=== PATIENT | male | born 1950 | race Caucasian/White ===

== ENCOUNTER 2019-10-13 11:12 | Outpatient (CLI) | payer MEDICARE, BC ==
--- NOTE | 2019-10-13 13:26 | CT ---
CTA ABDOMEN AND PELVIS WITH BILATERAL LOWER EXTREMITY RUNOFF: INDICATIONS: Lower extremity peripheral vascular disease TECHNIQUE: Multiple CTA images were obtained of the abdomen and pelvis with bilateral lower extremity runoff uti lizing IV contrast and 3D reformatted imaging. Axial, coronal and sagittal reformatted images were constructed from the raw data. COMPARISON: CTA of the chest, abdomen and pelvis dated October 22, 2012 FINDINGS: ABDOMEN: Lung bases: There is aneurysmal dilatation of the ascending thoracic aorta measuring up to 3.9 cm. Th ere is a short segment dissection flap involving the descending thoracic aorta originating at the distal margin of the aortic arch and extending to the level of the left atrium. There is postprocedur al change consistent with an ascending aortic replacement and aortic valvular replacement. There are prominent coronary artery and thoracic aortic calcifications. There is a small hiatal hernia. The re is a sub-4 mm, subpleural pulmonary nodule within the right middle lobe. Liver: No focal lesion. Gallbladder: There are layered gallstones within the gallbladder Pancreas: Normal. Adrenal glands: Normal. Spleen: Normal. Kidneys and ureters: There is a 7.5 cm cyst seen along the lateral margin of the superior pole left k idney. Additional subcentimeter cysts are seen within the lower pole. There are multiple small cysts involving the right kidney the largest is seen within the right mid kidney measuring 1.9 cm. Lymph nodes:No lymphadenopathy. Free fluid in abdomen:No free fluid is evident. PELVIS: Small and large bowel: There is scattered colonic diverticulosis. There is no active diverticulitis. There is a right sided inguinal hernia containing unobstructed loops of small bowel. Appendix:Normal Bladder: Normal. Rectal and perirectal soft tissues:Normal. Reproductive structures: Normal. Free fluid in pelvis: No free fluid is evident. Lymphadenopathy pelvis: No lymphadenopathy is evident. Osseous structures: No acute osseous abnormality. No destructive osteolytic or osteoblastic lesion i s identified. There is scattered degenerative and osteoarthritic changes. Soft tissues:Normal. VASCULATURE: Aorta: There is postprocedural change of an ascending aortic replacement. The excluded aneurysm of th e ascending aorta measures 3.9 cm. The aortic arch measures 2.8 cm. The descending thoracic aorta at the level right main pulmonary artery measures 3.9 cm. There is a short segment dissection flap th at is partially thrombosed involving the descending thoracic aorta proximally as described above. The thoracic aorta at the level of the hiatus measures 2.9 cm. The suprarenal abdominal aorta measure s 2.8 cm. There is an aortobiiliac endograft stent in place. The excluded infrarenal abdominal aorta measures 2 cm. The excluded right common iliac artery aneurysm measures 2.7 cm. The right inter nal iliac artery is completely occluded with endovascular coils. Both external iliac arteries are patent. Celiac:Normal in caliber without evidence of stenosis or occlusion. SMA:Normal in caliber without evidence of stenosis or occlusion. Renal arteries:There is a mild aneurysmal dilatation of the distal left renal artery near the left re nal sinus measuring 1.3 cm on image 82 of the coronal series right renal artery is patent. CHARLENE:Completely occluded but reconstitutes through collaterals. Right common iliac artery: Normal in caliber without evidence of stenosis or occlusion. Right external iliac artery: Normal in caliber without evidence of stenosis or occlusion. Right internal iliac artery: Occluded with endovascular coils Left common iliac artery: Normal in caliber without evidence of stenosis or occlusion. Left external iliac artery: Normal in caliber without evidence of stenosis or occlusion.. Left internal iliac artery: Normal in caliber without evidence of stenosis or occlusion. Right common femoral artery: Normal in caliber without evidence of stenosis or occlusion. Right deep femoral artery: There is moderate to severe narrowing involving the proximal right profun da artery Right superficial femoral artery: There is occlusion of the right distal superficial femoral artery at the level of the hiatus. There are collateral arteries seen along the medial aspect of the patella which reconstitutes flow in the level of the distal tibial peroneal trunk and anterior tibial artery. Right popliteal artery: Completely occluded Right posterior tibial artery: Opacification the right posterior tibial artery diminishes at the lev el of the right ankle. Right anterior tibial artery: Normal in caliber without evidence of stenosis or occlusion. Right peroneal artery: Normal in caliber without evidence of stenosis or occlusion. Left common femoral artery: Normal in caliber without evidence of stenosis or occlusion. Left deep femoral artery: Normal in caliber without evidence of stenosis or occlusion. Left superficial femoral artery: Normal in caliber without evidence of stenosis or occlusion. 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 There is an popliteal popliteal bypass graft with opacification of the tibial peroneal trunk and anterior tibial artery Left posterior tibial artery: There is multifocal high-grade stenosis involving the mid to distal le ft posterior tibial artery Left anterior tibial artery: Patent to the level of the ankle Left peroneal artery: There are multifocal areas of high-grade stenosis involving the left peroneal artery. The left peroneal artery is seen to the level of the distal one third of the left foreleg Additional findings: None. IMPRESSION: 1. Mild aneurysmal dilatation of the descending thoracic aorta with a short segment, partially thromb osed dissection flap. 2. Postprocedural change of an ascending aortic replacement, aortic valvular replacement, aortobiilia c endograft stent placement, and left popliteal popliteal bypass graft. 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 3. Complete occlusion of the distal right superficial femoral artery at the adductor hiatus and right popliteal artery with opacification of the right anterior tibial artery and right distal tibial peroneal trunk via medial knee collaterals. 4. Moderate to high-grade stenosis involving the proximal right profunda femoral artery. 5. 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 6. Multifocal high-grade stenosis involving the mid to distal left posterior tibial artery. Multifoca l high-grade stenosis involving the left peroneal artery. 7. Right renal hernia containing unobstructed loops of small bowel. 8. Bilateral renal cysts. 9. Cholelithiasis. 10. Findings were called to Dianna Paige, nurse practitioner for Dr. Garcia, at 1:15 PM on October 13, 2019
[2019-10-13] MEDS ORDERED: Iopamidol 370 76% 100 ML VIAL ONE (14:35)
--- NOTE | 2019-10-14 19:21 | ULT ---
LOWER EXTREMITY ARTERIAL EVALUATION USING DOPPLER WAVEFORM ANALYSIS AND SEGMENTAL LIMB PRESSURES. 10/13/19 Examination of the right leg reveals abnormal waveforms at all levels, femoral, popliteal and pedal. Ankle-arm index calculates to 0.79 and toe-brachial index to 0.35. This leg exam is most suspicious f or possible aortoiliac disease and then probable superficial femoral artery occlusion. Left lower extremity reveals slightly better waveforms at the femoral, popliteal and dorsalis pedis w ith an ankle-arm index of 1.22 and diminished toe-brachial index of 0.44. IMPRESSION: This study on the left leg demonstrates probable mild to moderate aortoiliac disease and at least mil d to moderate tibial disease.
== END 2019-10-13 11:13 | disposition home or self-care (01) ==
LOC: CT 11:12
PROVIDERS: ATTEND Surgery Vascular Surgery
DX: I73.9 Peripheral vascular disease, unspecified (principal); R60.9 Edema, unspecified; I70.8 Atherosclerosis of other arteries; N28.1 Cyst of kidney, acquired; K80.20 Calculus of gallbladder without cholecystitis without obstruction; K46.9 Unspecified abdominal hernia without obstruction or gangrene; Z98.890 Other specified postprocedural states; I77.810 Thoracic aortic ectasia
CPT/HCPCS: 71275; 75635; 82565; 93922; Q9967

== ENCOUNTER 2023-10-03 07:27 | Outpatient (CLI) | payer MEDICARE ==
[2023-10-03] MEDS ORDERED: Barium Sulfate 96% 176 GM BOT (xray ONLY) ONE (07:56)
[2023-10-03] MEDS ORDERED: E-Z-HD 98% W/W 340GM BOT (x-ray ONLY) ONE (07:56)
== END 2023-10-03 07:28 | disposition home or self-care (01) ==
LOC: RAD 07:27
PROVIDERS: ATTEND Physician Assistant Medical
DX: K21.9 Gastro-esophageal reflux disease without esophagitis (principal); K44.9 Diaphragmatic hernia without obstruction or gangrene; R13.10 Dysphagia, unspecified
CPT/HCPCS: 74220